=== PATIENT | male | born 1980 | race Caucasian/White ===

== ENCOUNTER 2018-05-05 20:01 | Emergency (ER) | payer OTHER ==
[~2018-05-05] VITALS: Ht 175.3 cm; Wt 95.3 kg
[2018-05-05] MEDS ORDERED: NEURONTIN600 MG PO (20:14)
[2018-05-05] MEDS ORDERED: NORCO 5-325 TA1 EACH PO (20:25)
[2018-05-05 20:34] VITALS: BP 125/77
== END 2018-05-05 20:34 | disposition home or self-care (01) ==
LOC: M.ERS 20:01
DX: G56.03 Carpal tunnel syndrome, bilateral upper limbs (principal); Z88.1 Allergy status to other antibiotic agents; Z88.6 Allergy status to analgesic agent